=== PATIENT | female | born 1955 | race Caucasian/White ===

== ENCOUNTER 2022-07-04 13:54 | Emergency (ER) | payer OTHER, MEDICARE ==
[~2022-07-04] VITALS: Ht 165.1 cm; Wt 72.6 kg
[2022-07-04] VITALS (7 sets, daily range): BP systolic 151–187; BP diastolic 75–94
[~2022-07-04 13:54] MED LIST: AMOXICILLIN/CL875 MG PO; DIFLUCAN150 MG PO; LORTAB 5/3255 MG PO; NO; OMEPRAZOLE20 MG PO; PAROXETINE20 MG PO; PREMARIN0.3 MG PO
== END 2022-07-04 16:16 | disposition home or self-care (01) | DRG 125 ==
LOC: ED 13:54
DX: S01.111A Laceration without foreign body of right eyelid and periocular area, initial encounter (principal); W17.89XA Other fall from one level to another, initial encounter; S00.03XA Contusion of scalp, initial encounter